=== PATIENT | female | born 1995 | race Caucasian/White ===

== ENCOUNTER 2023-05-21 06:42 | Inpatient (IN) ==
[2023-05-21] MEDS ORDERED: Lidocaine 1% VIAL 10 MG/ML 30 ML VIAL INJ PRN (07:49)
[2023-05-21] MEDS: Lactated Ringers 1000 ml BAG 1,000 ML IV ONE (08:38)
[2023-05-21] MEDS: Clindamycin 900 MG/D5W BAG 900 MG/50 ML BAG IVPB SCH (08:38)
[2023-05-21 09:25] LABS: ABS Eosinophils 0.2 10^3/uL (0.0-0.5); ABS Lymphocytes 1.1 10^3/uL (1.0-4.8); ABS Monocytes 0.4 10^3/uL (0.0-0.9); ABS Neutrophils 4.4 10^3/uL (1.5-7.6); Eosinophil % 3.1 %; Hematocrit 36.1 % (35-45); Hemoglobin 12.3 g/dL (11.5-14.3); Lymphocyte % 17.8 %; Mean Corpuscular Hemoglobin 30.5 pg (27-33); Mean Corpuscular Hgb Conc 34.1 g/dL (31-36); Mean Corpuscular Volume 89.3 fL (80-97); Mean Platelet Volume 7.2 fL (7.5-11.2); Platelet Count 242 10^3/uL (150-450); Red Blood Count 4.04 10^6/uL (3.63-4.92); Red Cell Distribution Width 14.6 % (12-17); White Blood Count 6.2 10^3/uL (3.8-11.8)
[2023-05-21 10:00] LABS: Urine Benzodiazepine Screen None Detected (None Detect); Urine Cannabinoids Screen None Detected (None Detect); Urine Opiates Screen None Detected (None Detect)
[2023-05-21] MEDS ORDERED: Ondansetron 4 mg VIAL 2 MG/ML 2 ml VIAL IV PRN (10:20)
[2023-05-21] MEDS: OBEPIDURAL (200 ML) 200 ML EPIDURAL ONE (11:28)
[2023-05-21] MEDS ORDERED: Sodium Citrate/Citric Acid LIQ 15 ML UDC PO PRN (11:32)
[2023-05-21] MEDS: Lidocaine 1.5% EPI 1:200,000 30 ML SDV ONE (11:32)
[2023-05-21] MEDS ORDERED: Phenylephrine 40 mcg/mL 10mL (400mcg) SYRINGE IV PUSH PRN ×2 (11:32)
[2023-05-21] MEDS ORDERED: Lactated Ringers 1000 ml BAG 1,000 ML IV ONE (11:32)
[2023-05-21] MEDS ORDERED: Lactated Ringers 1000 ml BAG 1,000 ML IV SCH ×2 (12:00→18:00)
[2023-05-21 12:38] LABS: Urine Appearance Clear; Urine Bilirubin Negative (Negative); Urine Blood Negative (Negative); Urine Color Light-Yellow; Urine Glucose Negative (Negative); Urine Ketones Negative (Negative); Urine Nitrite Negative (Negative); Urine Protein Negative (Negative); Urine Specific Gravity 1.004 (1.002-1.030); Urine Urobilinogen Negative (Negative)
[2023-05-21] MEDS: Oxytocin in LR 20,000 MILLI.UNIT/1,000 ML BAG IV SCH (13:42)
[2023-05-21] MEDS ORDERED: Glycerin ADULT 2.4 gm SUPP PR PRN (17:09)
[2023-05-21] MEDS ORDERED: Oxytocin in LR 20,000 MILLI.UNIT/1,000 ML BAG IV SCH (17:10)
[2023-05-21] MEDS: Dibucaine 1% OINT 28.35 GM TUBE PR PRN (17:51)
[2023-05-21] MEDS: Witch Hazel PAD JAR TOPICAL PRN (17:51)
[2023-05-21] MEDS: OBEPIDURAL (200 ML) 200 ML EPIDURAL SCH (18:55)
[2023-05-22 06:45] LABS: ABS Eosinophils 0.4 10^3/uL (0.0-0.5); ABS Lymphocytes 1.5 10^3/uL (1.0-4.8); ABS Monocytes 0.7 10^3/uL (0.0-0.9); ABS Neutrophils 5.9 10^3/uL (1.5-7.6); Eosinophil % 4.2 %; Hematocrit 29.8 % (35-45); Hemoglobin 10.2 g/dL (11.5-14.3); Lymphocyte % 17.3 %; Mean Corpuscular Hemoglobin 30.4 pg (27-33); Mean Corpuscular Hgb Conc 34.3 g/dL (31-36); Mean Corpuscular Volume 88.7 fL (80-97); Nucleated Red Blood Cells % 0.1 %/100WBC (0.0-0.8); Platelet Count 195 10^3/uL (150-450); Red Blood Count 3.36 10^6/uL (3.63-4.92); Red Cell Distribution Width 14.2 % (12-17); White Blood Count 8.4 10^3/uL (3.8-11.8)
[2023-05-22] MEDS: RHO D Immune Globulin (HUMAN) 300 MCG = 1,500 I.U. INJ IM ONE (13:54)
[2023-05-23 07:39] VITALS: BP 107/63
== END 2023-05-23 14:49 | disposition home or self-care (01) | DRG 560 ==
LOC: MCHOBOUT 06:42 → MCHOB 07:51
PROVIDERS: ADMIT Midwife; ATTEND Advanced Practice Midwife